=== PATIENT | male | born 1935 | race Caucasian/White ===

== ENCOUNTER 2021-10-08 21:04 | Emergency (ER) | payer MEDICARE, OTHER ==
[~2021-10-08] VITALS: Ht 170.2 cm; Wt 79.4 kg
--- NOTE | 2021-10-08 21:10 | NUR ---
PT BIBRA 839 FROM HOME FOR C/O RIGHT SHOULDER PAIN S/P FALL BACKWARD. PATIENT IS A/O, RR EVEN AND UNLABORED, NO SOB NOTED, PT TAKEN TO ER BED 09, CONNECTED TO MONITORS.
[2021-10-08] MEDS ORDERED: HYDR-4303 PO (22:59)
[2021-10-08] MEDS ORDERED: HYDROCODONE/APAP 5/325MG TABLET PO ONE (23:00)
[2021-10-08] MEDS ORDERED: HYDROCODONE/APAP 5/325MG TABLET ONE (23:12)
--- NOTE | 2021-10-08 23:44 | NUR ---
Patient discharged to home in stable condition. Written and verbal after care instructions given. Patient verbalizes understanding of instruction. PT ambulatory with a steady gait. Sling applied to pt's right arm
[2021-10-08 23:46] VITALS: BP 127/68
== END 2021-10-08 23:46 | disposition home or self-care (01) ==
LOC: ER 21:06
DX: S43.101A Unspecified dislocation of right acromioclavicular joint, initial encounter (principal); E11.9 Type 2 diabetes mellitus without complications; G20 Parkinson's disease; W19.XXXA Unspecified fall, initial encounter; Y93.89 Activity, other specified; Y92.89 Other specified places as the place of occurrence of the external cause; Y99.8 Other external cause status
CPT/HCPCS: 73030-TC

== ENCOUNTER 2022-01-18 13:27 | Emergency (ER) | payer MEDICARE, OTHER ==
[~2022-01-18] VITALS: Ht 170.2 cm; Wt 78.5 kg
[~2022-01-18 13:27] MED LIST: HYDR-4303 PO
--- NOTE | 2022-01-18 13:35 | NUR ---
The patient is bibra99, from home, had near syncope while in the bathroom, no trauma skin tear on the L elbow, denies hitting head, bg 132. The patient is alert and oriented x3. In room air and denies SOB. Respiration regular and unlabored. The patient is attached to the monitor. Warm blanket provided for comfort. Will continue to monitor the patient.
[2022-01-18 14:08] LABS: BASOPHILS % (AUTO) 0.4 % (0.0-2.0); EOSINOPHILS % (AUTO) 1.3 % (0.0-6.0); HEMATOCRIT 37 % (39-51); HEMOGLOBIN 11.8 g/dL (13.5-17.5); LYMPHOCYTES # (AUTO) 1.1 K/uL (0.8-4.8); LYMPHOCYTES % (AUTO) 21.5 % (20.0-44.0); MEAN CORPUSCULAR HGB CONC 32 g/dl (31.0-36.0); MEAN CORPUSCULAR VOLUME 77 fL (80-96); MONOCYTES # (AUTO) 0.4 K/uL (0.1-1.30); MONOCYTES % (AUTO) 7.6 % (2.0-12.0); NEUTROPHILS # (AUTO) 3.5 K/uL (1.8-8.9); NEUTROPHILS % (AUTO) 69.2 % (43.0-81.0); PLATELET COUNT (AUTO) 143 K/uL (150-450); RED BLOOD CELL COUNT(AUTO) 4.72 MIL/uL (4.5-6.0)
--- NOTE | 2022-01-18 14:10 | NUR ---
LAUREN Reynolds STEP-SON)
[2022-01-18 14:15] LABS: CALCIUM, SERUM 8.2 mg/dL (8.5-10.1); CARBON DIOXIDE 29 mmol/L (21-32); CHLORIDE 104 mmol/L (98-107); CREATININE 1.1 mg/dL (0.6-1.3); GLUCOSE 124 mg/dL (74-106); POTASSIUM 4.1 mmol/L (3.5-5.1); SODIUM SERUM 139 mmol/L (136-145); UREA NITROGEN, BLOOD 16 mg/dL (7-18)
[2022-01-18] MEDS ORDERED: PANT40TA49 PO (14:22)
[2022-01-18] MEDS ORDERED: ASPI-1420 PO (14:22)
[2022-01-18] MEDS ORDERED: CARB-131 PO (14:22)
[2022-01-18] MEDS ORDERED: LEVO-146 PO (14:22)
[2022-01-18] MEDS ORDERED: FOLI0.4T6 PO (14:22)
[2022-01-18] MEDS ORDERED: RASA0.5T2 PO (14:22)
--- NOTE | 2022-01-18 14:59 | NUR ---
WILL GET PICKED UP IN 30MINS BY LAUREN
--- NOTE | 2022-01-18 15:57 | NUR ---
The patient is alert and oriented x3. Denies pain. In room air and denies SOB. Respiration regular and unlabored. IV removed. Catheter intact and site benign. Pressure and 4x4 applied to site. No bleeding noted.Patient discharged to home in stable condition. Written and verbal after care instructions given. Patient verbalizes understanding of instruction. The patient is picked up by step-kathy Woodard.
[2022-01-18 15:58] VITALS: BP 110/73
== END 2022-01-18 15:58 | disposition home or self-care (01) ==
LOC: ER 14:39
DX: R55 Syncope and collapse (principal); E11.9 Type 2 diabetes mellitus without complications; E03.9 Hypothyroidism, unspecified; Z90.89 Acquired absence of other organs; Z87.19 Personal history of other diseases of the digestive system; Z79.899 Other long term (current) drug therapy
CPT/HCPCS: 36415; 80048-TC; 84484-TC; 85025-TC; J7030